=== PATIENT | female | born 1995 | race Caucasian/White ===

== ENCOUNTER 2018-10-26 17:53 | Emergency (ER) | payer OTHER ==
[~2018-10-26] VITALS: Ht 154.9 cm; Wt 45.5 kg
[2018-10-26 18:45] LABS: BASOPHILS % (AUTO) 1.1 % (0.0-2.0); EOSINOPHILS % (AUTO) 3.6 % (1.0-6.0); HEMATOCRIT 33.6 % (36-46); HEMOGLOBIN 10.8 g/dL (12.0-16.0); LYMPHOCYTES # (AUTO) 2.9 K/uL (1.0-4.8); LYMPHOCYTES % (AUTO) 34.9 % (22.0-44.0); MEAN CORPUSCULAR HEMOGLOBIN 20.5 pg (26.0-34.0); MEAN CORPUSCULAR VOLUME 64 fL (80-100); MONOCYTES # (AUTO) 0.6 K/uL (0.1-1.0); MONOCYTES % (AUTO) 6.6 % (2.0-9.0); NEUTROPHILS # (AUTO) 4.5 K/uL (1.8-7.7); NEUTROPHILS % (AUTO) 53.8 % (40.0-70.0); PLATELET COUNT (AUTO) 340 K/uL (150-450); RED BLOOD CELL COUNT(AUTO) 5.25 MIL/uL (4.00-5.20); RED CELL DISTRIBUTION WIDTH 20.3 % (11.5-14.5)
[2018-10-26 18:54] LABS: ANION GAP 9 mmol/L (8-16); CARBON DIOXIDE 26 mmol/L (22-29); CHLORIDE 101 mmol/L (98-107); CREATININE 0.58 mg/dL (0.60-1.30); GLOMERULAR FILTR. RATE CALC > 60 mL/min (>60); GLUCOSE,RANDOM 90 mg/dL (70-110); POTASSIUM 3.5 mmol/L (3.5-5.1); SODIUM SERUM 136 mmol/L (136-145); UREA NITROGEN, BLOOD 10 mg/dL (7-18)
[2018-10-26 19:02] LABS: APPEARANCE,URINE CLEAR (CLEAR); BILIRUBIN,URINE NEGATIVE (NEGATIVE); GLUCOSE, URINE (UA) NEGATIVE (NEGATIVE); KETONES,URINE NEGATIVE (NEGATIVE); LEUKOCYTE ESTERASE ,URINE TRACE (NEGATIVE); NITRATE,URINE NEGATIVE (NEGATIVE); OCCULT BLOOD,URINE NEGATIVE (NEGATIVE); PH,URINE 7.5 (5.0-8.0); PROTEIN,URINE NEGATIVE (NEGATIVE); UROBILINOGEN,URINE 0.2 mg/dL (<=1.0)
[2018-10-26 19:07] LABS: ALANINE AMINOTRANSFERASE 16 U/L (12-78); ALBUMIN 4.3 g/dL (3.4-5.0); ALKALINE PHOSPHATASE 63 U/L (46-116); ASPARTATE AMINOTRANSFERASE 16 U/L (15-37); BILIRUBIN,TOTAL 0.3 mg/dL (0.1-1.0); HCG,QUANTITATIVE < 1 mIU/mL (0-6); LIPASE 139 U/L (73-393); TOTAL PROTEIN, SERUM 8.4 g/dL (6.4-8.2)
[2018-10-26 19:14] LABS: PLATELET MORPHOLOGY COMMENT NORMAL
[2018-10-26 19:39] LABS: BACTERIA,URINE Few /HPF (None Seen); RBC,URINE 0-2 /HPF (0-2); SQUAMOUS EPITHELIAL CELL,UR Moderate /LPF (None Seen)
[2018-10-26] MEDS ORDERED: FLUCONAZOLE 150 MG TABLET PO ONE (21:30)
[2018-10-26 21:50] VITALS: BP 113/76
== END 2018-10-26 22:03 | disposition home or self-care (01) ==
LOC: EMS 17:54
DX: K52.9 Noninfective gastroenteritis and colitis, unspecified (principal); L73.9 Follicular disorder, unspecified; D64.9 Anemia, unspecified

== ENCOUNTER 2019-12-11 18:44 | Emergency (ER) | payer OTHER ==
[~2019-12-11] VITALS: Ht 154.9 cm; Wt 47.7 kg
[2019-12-11 19:04] LABS: GLUCOSE,POINT OF CARE 81 MG/DL (70-110)
[2019-12-11] MEDS ORDERED: HydrOXYzine PAMOATE 25 MG CAPSULE PO ONE (19:15)
[2019-12-11 19:51] LABS: BASOPHILS % (AUTO) 0.6 % (0.0-2.0); EOSINOPHILS % (AUTO) 3.5 % (1.0-6.0); HEMATOCRIT 42.4 % (36-46); HEMOGLOBIN 14.2 g/dL (12.0-16.0); LYMPHOCYTES # (AUTO) 2.9 K/uL (1.0-4.8); LYMPHOCYTES % (AUTO) 36.2 % (22.0-44.0); MEAN CORPUSCULAR HEMOGLOBIN 28.7 pg (26.0-34.0); MEAN CORPUSCULAR HGB CONC 33.6 G/dL (31.0-37.0); MEAN CORPUSCULAR VOLUME 86 fL (80-100); MONOCYTES # (AUTO) 0.5 K/uL (0.1-1.0); MONOCYTES % (AUTO) 5.9 % (2.0-9.0); NEUTROPHILS # (AUTO) 4.4 K/uL (1.8-7.7); NEUTROPHILS % (AUTO) 53.8 % (40.0-70.0); PLATELET COUNT (AUTO) 257 K/uL (150-450); RED BLOOD CELL COUNT(AUTO) 4.96 MIL/uL (4.00-5.20)
[2019-12-11 20:16] LABS: ANION GAP 10 mmol/L (8-16); CALCIUM, TOTAL 9.4 mg/dL (8.8-10.5); CARBON DIOXIDE 26 mmol/L (22-29); CHLORIDE 99 mmol/L (98-107); CREATININE 0.73 mg/dL (0.60-1.30); GLOMERULAR FILTR. RATE CALC > 60 mL/min (>60); GLUCOSE,RANDOM 92 mg/dL (70-110); POTASSIUM 4.1 mmol/L (3.5-5.1); SODIUM SERUM 135 mmol/L (136-145); UREA NITROGEN, BLOOD 13 mg/dL (7-18)
[2019-12-11 20:27] VITALS: BP 118/70
[2019-12-11 20:31] LABS: HCG,QUANTITATIVE < 1 mIU/mL (0-6); THYROID STIMULATING HORMONE 3.25 uIU/mL (0.36-3.74)
== END 2019-12-11 20:54 | disposition home or self-care (01) ==
LOC: EMS 18:45
DX: F41.9 Anxiety disorder, unspecified (principal); I10 Essential (primary) hypertension
CPT/HCPCS: 84443; 93005

== ENCOUNTER 2020-01-29 14:37 | Emergency (ER) | payer OTHER ==
[~2020-01-29] VITALS: Ht 154.9 cm; Wt 47.7 kg
[2020-01-29 14:42] VITALS: BP 117/77
[2020-01-29] MEDS ORDERED: IBUPROFEN 400 MG TABLET PO ONE (15:45)
== END 2020-01-29 16:20 | disposition home or self-care (01) ==
LOC: EMS 14:37
DX: M26.602 Left temporomandibular joint disorder, unspecified (principal)

== ENCOUNTER 2020-07-04 22:36 | Emergency (ER) | payer OTHER ==
[~2020-07-04] VITALS: Ht 154.9 cm; Wt 47.7 kg
[2020-07-04 23:58] LABS: BASOPHILS % (AUTO) 0.5 % (0.0-2.0); EOSINOPHILS % (AUTO) 3.9 % (1.0-6.0); HEMATOCRIT 43.1 % (36-46); HEMOGLOBIN 14.3 g/dL (12.0-16.0); LYMPHOCYTES # (AUTO) 3.1 K/uL (1.0-4.8); LYMPHOCYTES % (AUTO) 39.9 % (22.0-44.0); MEAN CORPUSCULAR HEMOGLOBIN 28.7 pg (26.0-34.0); MEAN CORPUSCULAR HGB CONC 33.2 G/dL (31.0-37.0); MEAN CORPUSCULAR VOLUME 86 fL (80-100); MONOCYTES # (AUTO) 0.5 K/uL (0.1-1.0); MONOCYTES % (AUTO) 6.9 % (2.0-9.0); NEUTROPHILS # (AUTO) 3.8 K/uL (1.8-7.7); NEUTROPHILS % (AUTO) 48.8 % (40.0-70.0); PLATELET COUNT (AUTO) 239 K/uL (150-450); RED CELL DISTRIBUTION WIDTH 13.5 % (11.5-14.5)
[2020-07-05] MEDS ORDERED: ACETAMINOPHEN 500 MG TABLET PO ONE
[2020-07-05] MEDS ORDERED: IBUPROFEN 600 MG TABLET PO ONE
[2020-07-05 00:24] LABS: ANION GAP 7 mmol/L (8-16); CARBON DIOXIDE 27 mmol/L (22-29); CHLORIDE 106 mmol/L (98-107); CREATININE 0.53 mg/dL (0.60-1.30); GLOMERULAR FILTR. RATE CALC > 60 mL/min (>60); GLUCOSE,RANDOM 85 mg/dL (70-110); POTASSIUM 3.7 mmol/L (3.5-5.1); SODIUM SERUM 140 mmol/L (136-145); UREA NITROGEN, BLOOD 14 mg/dL (7-18)
[2020-07-05 00:35] LABS: ALANINE AMINOTRANSFERASE 20 U/L (12-78); ALBUMIN 3.8 g/dL (3.4-5.0); ALKALINE PHOSPHATASE 61 U/L (46-116); ASPARTATE AMINOTRANSFERASE 18 U/L (15-37); BILIRUBIN,TOTAL 0.3 mg/dL (0.1-1.0); HCG,QUANTITATIVE 1 mIU/mL (0-6); TOTAL PROTEIN, SERUM 7.6 g/dL (6.4-8.2)
[2020-07-05 00:45] VITALS: BP 103/67
== END 2020-07-05 00:55 | disposition home or self-care (01) ==
LOC: EMS 22:36
DX: R51.9 Headache, unspecified (principal)

== ENCOUNTER 2021-04-19 13:37 | Emergency (ER) | payer OTHER ==
[~2021-04-19] VITALS: Ht 154.9 cm; Wt 50.0 kg
[2021-04-19 13:56] VITALS: BP 99/60
[2021-04-19 15:06] LABS: COVID AG,FIA SOURCE NASOPHARYNGEAL
== END 2021-04-19 15:01 | disposition home or self-care (01) ==
LOC: EMS 13:43
DX: U07.1 COVID-19 (principal)
CPT/HCPCS: 87426; 99283; C9803; U0003

== ENCOUNTER 2021-04-30 23:50 | Emergency (ER) | payer OTHER ==
[~2021-04-30] VITALS: Ht 154.9 cm; Wt 49.1 kg
[2021-05-01] MEDS ORDERED: KETOROLAC TROMETHAMINE 30 MG/ML VIAL IVP ONE (01:45)
[2021-05-01] MEDS ORDERED: ACETAMINOPHEN 500 MG TABLET PO ONE (01:45)
[2021-05-01] MEDS ORDERED: SODIUM CHLORIDE 0.9% 1,000 ML IV ONE (01:45)
[2021-05-01 02:14] LABS: APPEARANCE,URINE CLEAR (CLEAR); BILIRUBIN,URINE NEGATIVE (NEGATIVE); GLUCOSE, URINE (UA) NEGATIVE (NEGATIVE); KETONES,URINE NEGATIVE (NEGATIVE); LEUKOCYTE ESTERASE ,URINE NEGATIVE (NEGATIVE); NITRATE,URINE NEGATIVE (NEGATIVE); OCCULT BLOOD,URINE NEGATIVE (NEGATIVE); PROTEIN,URINE NEGATIVE (NEGATIVE); UROBILINOGEN,URINE 0.2 mg/dL (<=1.0)
[2021-05-01 02:17] LABS: BASOPHILS % (AUTO) 0.5 % (0.0-2.0); EOSINOPHILS % (AUTO) 3.9 % (1.0-6.0); HEMATOCRIT 40.4 % (36-46); HEMOGLOBIN 13.3 g/dL (12.0-16.0); LYMPHOCYTES # (AUTO) 2.6 K/uL (1.0-4.8); LYMPHOCYTES % (AUTO) 35.2 % (22.0-44.0); MEAN CORPUSCULAR HGB CONC 32.9 G/dL (31.0-37.0); MEAN CORPUSCULAR VOLUME 76 fL (80-100); MONOCYTES # (AUTO) 0.4 K/uL (0.1-1.0); MONOCYTES % (AUTO) 5.8 % (2.0-9.0); NEUTROPHILS # (AUTO) 4.1 K/uL (1.8-7.7); NEUTROPHILS % (AUTO) 54.6 % (40.0-70.0); PLATELET COUNT (AUTO) 276 K/uL (150-450); RED BLOOD CELL COUNT(AUTO) 5.32 MIL/uL (4.00-5.20); RED CELL DISTRIBUTION WIDTH 15.8 % (11.5-14.5)
[2021-05-01 02:30] VITALS: BP 92/67
[2021-05-01 02:30] LABS: ANION GAP 11 mmol/L (8-16); CARBON DIOXIDE 24 mmol/L (22-29); CHLORIDE 105 mmol/L (98-107); CREATININE 0.61 mg/dL (0.60-1.30); GLOMERULAR FILTR. RATE CALC > 60 mL/min (>60); GLUCOSE,RANDOM 88 mg/dL (70-110); POTASSIUM 3.6 mmol/L (3.5-5.1); SODIUM SERUM 140 mmol/L (136-145); UREA NITROGEN, BLOOD 13 mg/dL (7-18)
[2021-05-01 02:33] LABS: BACTERIA,URINE Rare /HPF (None Seen); RBC,URINE 0-2 /HPF (0-2); SQUAMOUS EPITHELIAL CELL,UR Few /LPF (None Seen); WBC,URINE 0-2 /HPF (0-5)
[2021-05-01 02:33] LABS: ALANINE AMINOTRANSFERASE 25 U/L (12-78); ALBUMIN 4.1 g/dL (3.4-5.0); ALKALINE PHOSPHATASE 66 U/L (46-116); ASPARTATE AMINOTRANSFERASE 17 U/L (15-37); BILIRUBIN,TOTAL 0.4 mg/dL (0.1-1.0); HCG,QUANTITATIVE < 1 mIU/mL (0-6); TOTAL PROTEIN, SERUM 7.9 g/dL (6.4-8.2)
== END 2021-05-01 04:14 | disposition home or self-care (01) ==
LOC: EMS 05-01 00:05
DX: E86.0 Dehydration (principal); R51.9 Headache, unspecified
CPT/HCPCS: 36415; 80053; 81001; 84702; 85025; 96361; 96374; 99283; J1885; J7030; 96375

== ENCOUNTER 2021-05-02 03:39 | Emergency (ER) | payer OTHER ==
[~2021-05-02] VITALS: Ht 154.9 cm; Wt 49.1 kg
[2021-05-02 04:04] VITALS: BP 110/74
== END 2021-05-02 04:20 | disposition home or self-care (01) ==
LOC: EMS 03:40
DX: J68.0 Bronchitis and pneumonitis due to chemicals, gases, fumes and vapors (principal)
CPT/HCPCS: 93005; 99283

== ENCOUNTER 2021-06-06 09:36 | Emergency (ER) | payer OTHER ==
[~2021-06-06] VITALS: Ht 154.9 cm; Wt 47.7 kg
[2021-06-06 11:28] VITALS: BP 135/68
== END 2021-06-06 11:41 | disposition home or self-care (01) ==
LOC: EMS 09:39
DX: U07.1 COVID-19 (principal)
CPT/HCPCS: 99283; U0003

== ENCOUNTER 2021-08-05 10:47 | Emergency (ER) | payer OTHER ==
[~2021-08-05] VITALS: Ht 154.9 cm; Wt 48.6 kg
[2021-08-05 10:57] VITALS: BP 113/64
== END 2021-08-05 12:55 | disposition home or self-care (01) ==
LOC: EMS 10:54
DX: Z20.822 Contact with and (suspected) exposure to COVID-19 (principal)
CPT/HCPCS: 99283; U0003

== ENCOUNTER 2021-08-25 18:55 | Emergency (ER) | payer OTHER ==
[~2021-08-25] VITALS: Ht 154.9 cm; Wt 47.7 kg
[2021-08-25 20:01] LABS: APPEARANCE,URINE CLOUDY (CLEAR); BILIRUBIN,URINE NEGATIVE (NEGATIVE); GLUCOSE, URINE (UA) NEGATIVE (NEGATIVE); KETONES,URINE NEGATIVE (NEGATIVE); LEUKOCYTE ESTERASE ,URINE LARGE (NEGATIVE); NITRATE,URINE NEGATIVE (NEGATIVE); OCCULT BLOOD,URINE NEGATIVE (NEGATIVE); PH,URINE 8.5 (5.0-8.0); PROTEIN,URINE SEE CONFIRM (NEGATIVE); UROBILINOGEN,URINE 0.2 mg/dL (<=1.0)
[2021-08-25 20:09] LABS: BASOPHILS % (AUTO) 0.8 % (0.0-2.0); HEMATOCRIT 36.6 % (36-46); HEMOGLOBIN 12.2 g/dL (12.0-16.0); LYMPHOCYTES # (AUTO) 2.4 K/uL (1.0-4.8); LYMPHOCYTES % (AUTO) 28.2 % (22.0-44.0); MEAN CORPUSCULAR HEMOGLOBIN 25.2 pg (26.0-34.0); MEAN CORPUSCULAR HGB CONC 33.3 G/dL (31.0-37.0); MEAN CORPUSCULAR VOLUME 76 fL (80-100); MONOCYTES # (AUTO) 0.5 K/uL (0.1-1.0); MONOCYTES % (AUTO) 6.4 % (2.0-9.0); NEUTROPHILS % (AUTO) 59.6 % (40.0-70.0); PLATELET COUNT (AUTO) 253 K/uL (150-450); RED BLOOD CELL COUNT(AUTO) 4.83 MIL/uL (4.00-5.20); RED CELL DISTRIBUTION WIDTH 16.1 % (11.5-14.5)
[2021-08-25 20:14] LABS: SULFOSALICYLIC ACID,URINE 2+ (Negative)
[2021-08-25 20:15] LABS: BACTERIA,URINE Many /HPF (None Seen); RBC,URINE 0-2 /HPF (0-2); WBC,URINE 26-50 /HPF (0-5)
[2021-08-25] MEDS ORDERED: ACETAMINOPHEN 325 MG TABLET PO ONE (20:15)
[2021-08-25 20:17] LABS: ANION GAP 5 mmol/L (8-16); CALCIUM, TOTAL 8.9 mg/dL (8.8-10.5); CARBON DIOXIDE 31 mmol/L (22-29); CHLORIDE 106 mmol/L (98-107); CREATININE 0.61 mg/dL (0.60-1.30); GLOMERULAR FILTR. RATE CALC > 60 mL/min (>60); GLUCOSE,RANDOM 95 mg/dL (70-110); POTASSIUM 3.4 mmol/L (3.5-5.1); SODIUM SERUM 142 mmol/L (136-145); UREA NITROGEN, BLOOD 10 mg/dL (7-18)
[2021-08-25 20:40] LABS: ALANINE AMINOTRANSFERASE 14 U/L (12-78); ALBUMIN 4.3 g/dL (3.4-5.0); ALKALINE PHOSPHATASE 74 U/L (46-116); ASPARTATE AMINOTRANSFERASE 14 U/L (15-37); BILIRUBIN,TOTAL 0.4 mg/dL (0.1-1.0); HCG,QUANTITATIVE < 1 mIU/mL (0-6); LIPASE 95 U/L (73-393); TOTAL PROTEIN, SERUM 8.1 g/dL (6.4-8.2)
[2021-08-25] MEDS ORDERED: LIDOCAINE/PF 1% 2 ML VIAL IM ONE (21:00)
[2021-08-25] MEDS ORDERED: CefTRIAXone SODIUM 1 GM/VIAL IM ONE (21:00)
[2021-08-25 21:52] VITALS: BP 137/72
== END 2021-08-25 21:52 | disposition home or self-care (01) ==
LOC: EMS 18:56
DX: N39.0 Urinary tract infection, site not specified (principal)
CPT/HCPCS: 36415; 80053; 81001; 83690; 84702; 85025; 87077; 87086; 87186; 96372; 99283; J0696; J3490; 81002

== ENCOUNTER 2022-04-08 22:46 | Emergency (ER) | payer OTHER ==
[~2022-04-08] VITALS: Ht 154.9 cm; Wt 47.3 kg
[2022-04-08 22:56] VITALS: BP 116/65
[2022-04-08 23:45] LABS: COVID AG,FIA SOURCE NASOPHARYNGEAL
[2022-04-08 23:46] LABS: BASOPHILS % (AUTO) 0.7 % (0.0-2.0); EOSINOPHILS % (AUTO) 4.3 % (1.0-6.0); HEMATOCRIT 33.2 % (36-46); HEMOGLOBIN 10.7 g/dL (12.0-16.0); LYMPHOCYTES # (AUTO) 3.2 K/uL (1.0-4.8); LYMPHOCYTES % (AUTO) 34.8 % (22.0-44.0); MEAN CORPUSCULAR HEMOGLOBIN 21.8 pg (26.0-34.0); MEAN CORPUSCULAR HGB CONC 32.2 G/dL (31.0-37.0); MEAN CORPUSCULAR VOLUME 68 fL (80-100); MONOCYTES # (AUTO) 0.6 K/uL (0.1-1.0); NEUTROPHILS # (AUTO) 4.9 K/uL (1.8-7.7); NEUTROPHILS % (AUTO) 53.2 % (40.0-70.0); PLATELET COUNT (AUTO) 275 K/uL (150-450); RED CELL DISTRIBUTION WIDTH 18.3 % (11.5-14.5)
[2022-04-08 23:56] LABS: ANION GAP 9 mmol/L (8-16); CALCIUM, TOTAL 8.8 mg/dL (8.8-10.5); CARBON DIOXIDE 27 mmol/L (22-29); CHLORIDE 101 mmol/L (98-107); CREATININE 0.68 mg/dL (0.60-1.30); GLUCOSE,RANDOM 89 mg/dL (70-110); POTASSIUM 3.2 mmol/L (3.5-5.1); SODIUM SERUM 137 mmol/L (136-145); UREA NITROGEN, BLOOD 11 mg/dL (7-18)
[2022-04-08 23:57] LABS: GLOMERULAR FILTR. RATE CALC > 60 mL/min (>60)
[2022-04-09] MEDS ORDERED: POTASSIUM CHLORIDE 20 MEQ ER TABLET PO ONE (00:15)
[2022-04-09 00:22] LABS: ALANINE AMINOTRANSFERASE 18 U/L (12-78); ALBUMIN 4.1 g/dL (3.4-5.0); ALKALINE PHOSPHATASE 72 U/L (46-116); ASPARTATE AMINOTRANSFERASE 14 U/L (15-37); BILIRUBIN,TOTAL 0.3 mg/dL (0.1-1.0); CREATINE KINASE, TOTAL ONLY 95 U/L (26-192); HCG,QUANTITATIVE < 1 mIU/mL (0-6); TOTAL PROTEIN, SERUM 7.8 g/dL (6.4-8.2)
== END 2022-04-09 00:52 | disposition home or self-care (01) ==
LOC: EMS 22:48
DX: R42 Dizziness and giddiness (principal); E87.6 Hypokalemia; Z86.16 Personal history of COVID-19; Z98.890 Other specified postprocedural states; Z20.822 Contact with and (suspected) exposure to COVID-19
CPT/HCPCS: 80053; 82550; 82962; 84484; 84702; 85025; 93005; 99284

== ENCOUNTER 2022-11-27 20:22 | Emergency (ER) | payer OTHER ==
[~2022-11-27] VITALS: Ht 154.9 cm; Wt 51.4 kg
[2022-11-27 21:37] LABS: EOSINOPHILS % (AUTO) 3.9 % (1.0-6.0); HEMATOCRIT 34.1 % (36-46); HEMOGLOBIN 10.8 g/dL (12.0-16.0); LYMPHOCYTES # (AUTO) 3.1 K/uL (1.0-4.8); LYMPHOCYTES % (AUTO) 46.2 % (22.0-44.0); MEAN CORPUSCULAR HEMOGLOBIN 21.3 pg (26.0-34.0); MEAN CORPUSCULAR HGB CONC 31.6 G/dL (31.0-37.0); MEAN CORPUSCULAR VOLUME 67 fL (80-100); MONOCYTES # (AUTO) 0.4 K/uL (0.1-1.0); MONOCYTES % (AUTO) 5.8 % (2.0-9.0); NEUTROPHILS # (AUTO) 2.9 K/uL (1.8-7.7); NEUTROPHILS % (AUTO) 43.1 % (40.0-70.0); PLATELET COUNT (AUTO) 307 K/uL (150-450); RED BLOOD CELL COUNT(AUTO) 5.07 MIL/uL (4.00-5.20); RED CELL DISTRIBUTION WIDTH 18.4 % (11.5-14.5)
[2022-11-27 21:38] LABS: APPEARANCE,URINE CLEAR (CLEAR); BILIRUBIN,URINE NEGATIVE (NEGATIVE); GLUCOSE, URINE (UA) NEGATIVE (NEGATIVE); KETONES,URINE NEGATIVE (NEGATIVE); LEUKOCYTE ESTERASE ,URINE NEGATIVE (NEGATIVE); NITRATE,URINE NEGATIVE (NEGATIVE); OCCULT BLOOD,URINE NEGATIVE (NEGATIVE); PROTEIN,URINE TRACE mg/dL (NEGATIVE); SPECIFIC GRAVITIY, URINE 1.033 (1.003-1.030); UROBILINOGEN,URINE <=1.0 mg/dL (<=1.0)
[2022-11-27 21:41] LABS: ANION GAP 8 mmol/L (8-16); CARBON DIOXIDE 30 mmol/L (22-29); CHLORIDE 102 mmol/L (98-107); CREATININE 0.59 mg/dL (0.60-1.30); GLOMERULAR FILTR. RATE CALC > 60 mL/min (>60); GLUCOSE,RANDOM 87 mg/dL (70-110); POTASSIUM 3.7 mmol/L (3.5-5.1); SODIUM SERUM 140 mmol/L (136-145); UREA NITROGEN, BLOOD 18 mg/dL (7-18)
[2022-11-27 21:59] LABS: ALANINE AMINOTRANSFERASE 22 U/L (12-78); ALBUMIN 4.3 g/dL (3.4-5.0); ALKALINE PHOSPHATASE 85 U/L (46-116); ASPARTATE AMINOTRANSFERASE 28 U/L (15-37); BILIRUBIN,TOTAL 0.2 mg/dL (0.1-1.0); HCG,QUANTITATIVE < 1 mIU/mL (0-6); LIPASE 160 U/L (73-393); TOTAL PROTEIN, SERUM 8.6 g/dL (6.4-8.2)
[2022-11-27 22:27] VITALS: BP 112/69
== END 2022-11-27 22:33 | disposition home or self-care (01) ==
LOC: EMS 20:28
DX: R42 Dizziness and giddiness (principal); Z98.890 Other specified postprocedural states
CPT/HCPCS: 80053; 81003; 82962; 83690; 84702; 85025; 93005; 99284

== ENCOUNTER 2023-02-18 22:08 | Emergency (ER) | payer OTHER ==
[~2023-02-18] VITALS: Ht 154.9 cm; Wt 53.2 kg
[2023-02-19 02:41] VITALS: BP 122/76
== END 2023-02-19 02:44 | disposition home or self-care (01) ==
LOC: EMS 22:11
DX: K12.2 Cellulitis and abscess of mouth (principal); Z98.890 Other specified postprocedural states
CPT/HCPCS: 87430; 99283

== ENCOUNTER 2023-09-07 13:44 | Emergency (ER) | payer OTHER ==
[~2023-09-07] VITALS: Ht 154.9 cm; Wt 59.1 kg
[2023-09-07 14:27] LABS: COVID AG,FIA SOURCE NASAL SWAB
[2023-09-07 14:51] LABS: SARS-COV2 (COVID) ANTIGEN,FIA Negative (Negative)
[2023-09-07 14:52] LABS: INFLUENZA TYPE A NEGATIVE FOR TYPE A (NEGATIVE); INFLUENZA TYPE B NEGATIVE FOR TYPE B (NEGATIVE)
[2023-09-07] MEDS ORDERED: ACETAMINOPHEN 500 MG TABLET PO ONE (15:30)
[2023-09-07] MEDS ORDERED: SODIUM CHLORIDE 0.9% 1,000 ML IV ONE (17:00)
[2023-09-07 17:21] LABS: BASOPHILS % (AUTO) 0.8 % (0.0-2.0); EOSINOPHILS % (AUTO) 0.6 % (1.0-6.0); HEMATOCRIT 34.6 % (36-46); HEMOGLOBIN 11.5 g/dL (12.0-16.0); LYMPHOCYTES # (AUTO) 0.5 K/uL (1.0-4.8); LYMPHOCYTES % (AUTO) 8.2 % (22.0-44.0); MEAN CORPUSCULAR HEMOGLOBIN 23.5 pg (26.0-34.0); MEAN CORPUSCULAR HGB CONC 33.1 G/dL (31.0-37.0); MEAN CORPUSCULAR VOLUME 71 fL (80-100); MONOCYTES # (AUTO) 0.7 K/uL (0.1-1.0); MONOCYTES % (AUTO) 10.5 % (2.0-9.0); NEUTROPHILS # (AUTO) 5.3 K/uL (1.8-7.7); NEUTROPHILS % (AUTO) 79.9 % (40.0-70.0); PLATELET COUNT (AUTO) 270 K/uL (150-450); RED BLOOD CELL COUNT(AUTO) 4.88 MIL/uL (4.00-5.20); RED CELL DISTRIBUTION WIDTH 19.1 % (11.5-14.5); WHITE BLOOD COUNT (AUTO) 6.6 K/uL (4.5-11.0)
[2023-09-07 17:28] LABS: ANION GAP 7 mmol/L (8-16); CALCIUM, TOTAL 8.7 mg/dL (8.8-10.5); CARBON DIOXIDE 27 mmol/L (22-29); CHLORIDE 101 mmol/L (98-107); GLOMERULAR FILTR. RATE CALC > 60 mL/min (>60); GLUCOSE,RANDOM 105 mg/dL (70-110); POTASSIUM 3.5 mmol/L (3.5-5.1); SODIUM SERUM 135 mmol/L (136-145); UREA NITROGEN, BLOOD 6 mg/dL (7-18)
[2023-09-07] MEDS ORDERED: KETOROLAC TROMETHAMINE 30 MG/ML VIAL IVP ONE (17:45)
[2023-09-07 17:47] LABS: APPEARANCE,URINE CLEAR (CLEAR); BILIRUBIN,URINE NEGATIVE (NEGATIVE); COLOR,URINE COLORLESS (YELLOW); GLUCOSE, URINE (UA) NEGATIVE (NEGATIVE); KETONES,URINE NEGATIVE (NEGATIVE); LEUKOCYTE ESTERASE ,URINE TRACE (NEGATIVE); NITRATE,URINE NEGATIVE (NEGATIVE); OCCULT BLOOD,URINE TRACE (NEGATIVE); PH,URINE 6.5 (5.0-8.0); PROTEIN,URINE NEGATIVE (NEGATIVE); SPECIFIC GRAVITIY, URINE 1.007 (1.003-1.030); UROBILINOGEN,URINE <=1.0 mg/dL (<=1.0)
[2023-09-07 17:51] LABS: RBC MORPHOLOGY COMMENT ABNORMAL RBC MORPH
[2023-09-07 17:58] LABS: BACTERIA,URINE None Seen /HPF (None Seen); RBC,URINE None Seen /HPF (0-2); WBC,URINE 0-2 /HPF (0-5)
[2023-09-07 19:18] VITALS: BP 101/53; PULSE 97; RESP 16; TEMP 99
[2023-09-07] MEDS ORDERED: OXYMETAZOLINE HCL 0.05% 15 ML NASAL SPRAY NASAL ONE (19:45)
[2023-09-07] MEDS ORDERED: AMOX1TAB16 PO (20:18)
[2023-09-07] MEDS ORDERED: IBUP-1492 PO (20:18)
== END 2023-09-07 20:32 | disposition home or self-care (01) ==
LOC: EMS 13:58
DX: J32.9 Chronic sinusitis, unspecified (principal); Z98.890 Other specified postprocedural states; Z20.822 Contact with and (suspected) exposure to COVID-19
CPT/HCPCS: 99285; 96374; 96361; 87426; 80048; 81001; 85025; 87804; 36415; 81025; J1885; J7030

== ENCOUNTER 2024-11-10 12:02 | Emergency (ER) | payer OTHER ==
[~2024-11-10] VITALS: Ht 154.9 cm; Wt 55.0 kg
[~2024-11-10 12:02] MED LIST: AMOX-457 PO; IBUP-1492 PO
[2024-11-10 12:14] VITALS: BP 114/40; PULSE 88; RESP 16; TEMP 98.2; O2SAT 100
== END 2024-11-10 14:46 | disposition left against medical advice (07) ==
LOC: EMS 13:41
DX: R06.02 Shortness of breath (principal); R00.2 Palpitations; Z53.21 Procedure and treatment not carried out due to patient leaving prior to being seen by health care provider
CPT/HCPCS: 93005